=== PATIENT | male | born 1965 | race Caucasian/White ===

== ENCOUNTER 2020-01-06 11:03 | Emergency (ER) | payer BC ==
[~2020-01-06] VITALS: Ht 177.8 cm; Wt 81.8 kg
[~2020-01-06 11:03] MED LIST: AMLOPIDINE PO; CIPRO 500MG TA500 MG PO; FLAGYL500 MG PO; FLOMAX 0.40.4 MG/CAP PO; NORCO 325 MG-51 TAB PO; TOPROL XL25 MG PO; ZOFRAN 4MG T4 MG/TAB PO
[2020-01-06 11:06] VITALS: TEMP 97.7
[2020-01-06 11:37] LABS: BASO % 0.3 % (0.0-2.0); GRAN # 12.1 (1.4-6.5); HEMATOCRIT 43.6 % (42.0-52.0); HEMOGLOBIN 14.7 g/dl (13.5-18.0); LYMPH # 0.9 (1.2-3.4); LYMPH % 6.3 % (20.0-51.0); MEAN CELL VOLUME 88 fl (80.0-100.0); MEAN CORPUSCULAR HEMOGLOBIN 30 pg (27.0-31.0); MEAN CORPUSCULAR HGB CONC 34 g/dl (33.0-37.0); MONO % 6.9 % (1.7-9.3); PLATELET COUNT 171 K/mm3 (130-400); RED BLOOD COUNT 4.96 M/mm3 (4.20-5.60); REDCELL DISTRIBUTION WIDTH-CV 13.3 % (11.5-14.5)
[2020-01-06 11:47] LABS: ALANINE AMINOTRANSFERASE 38 U/L (4-49); ALBUMIN 4.6 gm/dL (3.5-5.0); ALKALINE PHOSPHATASE 103 U/L (50-136); ANION GAP 7 mmol/L (7-16); AST,SGOT 46 U/L (15-37); BILIRUBIN,TOTAL 0.6 mg/dL (0.0-1.0); BLOOD UREA NITROGEN 16 mg/dL (9-20); C-REACTIVE PROTEIN < 0.5 mg/dL (0.0-0.9); CALCIUM 9.1 mg/dL (8.4-10.2); CARBON DIOXIDE 25 mmol/L (22-30); CHLORIDE 105 mmol/L (98-107); CREATININE, serum 0.91 (0.66-1.25); GLUCOSE 179 mg/dL (74-106); LIPASE 93 U/L (23-300); POTASSIUM 3.8 mmol/L (3.4-5.0); SODIUM 137 mmol/L (137-145); TOTAL PROTEIN 7.9 gm/dL (6.4-8.2)
[2020-01-06 11:59] LABS: TROPONIN-I < 0.012 ng/mL (0.000-0.035)
[2020-01-06 12:01] LABS: PROLACTIN 20.1 ng/mL (3.7-17.9)
[2020-01-06 13:54] LABS: PROTHROMBIN TIME 10.9 SECONDS (9.7-12.8)
[2020-01-06 13:57] LABS: PARTIAL THROMBOPLASTIN TIME 28.6 SECONDS (26.0-37.0)
[2020-01-06 14:11] LABS: COLLECTION METHOD CLEAN CATCH
[2020-01-06 14:26] LABS: MUCOUS Present /lpf; PH 5 (5-8); SQUAMOUS EPITHELIAL None Seen /hpf; URINE APPEARANCE Hazy; URINE BACTERIA None Seen /hpf; URINE BILIRUBIN Negative (NEGATIVE); URINE BLOOD 3+ (NEGATIVE); URINE COLOR Yellow; URINE GLUCOSE Negative (NEGATIVE); URINE KETONE Negative (NEGATIVE); URINE LEUKOCYTE ESTERASE Negative (NEGATIVE); URINE NITRATE Negative (NEGATIVE); URINE PROTEIN(semi-quant) Negative (NEGATIVE); URINE UROBILINOGEN Negative (NEGATIVE)
[2020-01-06 15:15] VITALS: BP 128/90; PULSE 98
== END 2020-01-06 15:15 | disposition short-term general hospital (02) ==
LOC: COL.ER 11:03
PROVIDERS: Physician Assistant
DX: S22.061A Stable burst fracture of T7-T8 vertebra, initial encounter for closed fracture (principal); S22.080A Wedge compression fracture of T11-T12 vertebra, initial encounter for closed fracture; X58.XXXA Exposure to other specified factors, initial encounter
CPT/HCPCS: C9113; J1170; J2270; J2405; Q9967

== ENCOUNTER → 2020-03-01 | Outpatient (CLI) | payer OTHER, BC | LOC: COL.RAD 12:44 | DX: S22.062 Unstable burst fracture of T7-T8 vertebra (principal); Z98.1 Arthrodesis status; Z95.2 Presence of prosthetic heart valve ==

== ENCOUNTER 2020-05-20 08:00 | Outpatient (RCR) | payer OTHER, BC | END 2020-05-24 | disposition home or self-care (01) | LOC: MKS.ESL.PT | DX: S22.062 Unstable burst fracture of T7-T8 vertebra (principal); S22.080D Wedge compression fracture of T11-T12 vertebra, subsequent encounter for fracture with routine healing ==

== ENCOUNTER → 2020-05-25 | Outpatient (CLI) | payer OTHER, BC | LOC: COL.RAD 08:11 | DX: S22.062 Unstable burst fracture of T7-T8 vertebra (principal); S22.080D Wedge compression fracture of T11-T12 vertebra, subsequent encounter for fracture with routine healing; Z98.1 Arthrodesis status ==

== ENCOUNTER → 2021-05-04 | Outpatient (CLI) | payer BC | LOC: COL.RAD 10:52 | DX: Z98.890 Other specified postprocedural states (principal); Z95.828 Presence of other vascular implants and grafts; Z95.2 Presence of prosthetic heart valve | CPT/HCPCS: Q9967 ==

== ENCOUNTER 2021-06-26 09:40 | Inpatient (IN) | payer BC ==
[~2021-06-26] VITALS: Wt 78.2 kg
[2021-06-26] MEDS ORDERED: KEPPRA750 MG PO (09:52)
[2021-06-26] MEDS ORDERED: LAMICTAL XR100 MG PO (09:53)
[2021-06-26] MEDS ORDERED: PRISTIQ100 MG PO (10:14)
[2021-06-26] MEDS ORDERED: COZAAR 25MG25 MG/TAB PO (10:14)
[2021-06-26] MEDS ORDERED: LIPITOR 40MG TA40 MG PO (10:16)
[2021-06-26] MEDS ORDERED: BUSPAR10 MG PO (10:16)
[2021-06-26] MEDS ORDERED: FLOMAX 0.40.4 MG/CAP PO (10:29)
[2021-06-26] MEDS ORDERED: ASPIRIN E.C. 8181 MG PO (10:31)
[2021-06-26 10:36] LABS: BASO % 0.4 % (0.0-2.0); EOS % 0.1 % (0.0-4.0); GRAN # 8.5 K/mm3 (1.4-6.5); GRAN % 81.9 % (42.2-75.2); HEMATOCRIT 45.1 % (42.0-52.0); HEMOGLOBIN 15.2 g/dl (13.5-18.0); LYMPH # 1.1 K/mm3 (1.2-3.4); MEAN CELL VOLUME 88 fl (80.0-100.0); MEAN CORPUSCULAR HEMOGLOBIN 30 pg (27-31); MEAN CORPUSCULAR HGB CONC 34 g/dl (33.0-37.0); MEAN PLATELET VOLUME 8.8 fl (7.4-10.4); MONO # 0.7 K/mm3 (0.1-0.6); MONO % 6.3 % (1.7-9.3); PLATELET COUNT 225 K/mm3 (130-400); RED BLOOD COUNT 5.13 M/mm3 (4.20-5.60); REDCELL DISTRIBUTION WIDTH-CV 13.1 % (11.5-14.5)
[2021-06-26 10:51] LABS: ALANINE AMINOTRANSFERASE 29 U/L (0-55); ALBUMIN 4.5 gm/dL (3.5-5.0); ALKALINE PHOSPHATASE 88 U/L (40-150); ANION GAP 12 mmol/L (7-16); AST,SGOT 25 U/L (5-34); BILIRUBIN,TOTAL 0.6 mg/dL (0.2-1.2); BLOOD UREA NITROGEN 12 mg/dL (8-26); CALCIUM 9.5 mg/dL (8.4-10.2); CARBON DIOXIDE 24 mmol/L (22-29); CHLORIDE 105 mmol/L (98-107); CREATININE, serum 1.04 mg/dL (0.72-1.25); GLUCOSE 165 mg/dL (70-99); POTASSIUM 3.4 mmol/L (3.5-4.5); SODIUM 141 mmol/L (136-145)
[2021-06-26 10:55] LABS: ACETAMINOPHEN < 1.0 ug/mL (10-30); ALCOHOL(ethanol),MEDICAL < 10 mg/dL (0-10); SALICYLATE < 5.0 mg/dL (15.0-30.0)
[2021-06-26 11:11] LABS: TSH w REFLEX 2.645 uIU/mL (0.350-4.940)
[2021-06-26 13:11] LABS: VALPROIC ACID (DEPAKENE) < 12.5 ug/mL (43.5-90.5)
[2021-06-26 17:51] LABS: COLLECTION METHOD CLEAN CATCH
[2021-06-26 18:00] LABS: AMORPHOUS CRYSTAL Present (NOT PRESENT); PH 8 (5-8); SQUAMOUS EPITHELIAL 0-2 /hpf (0-10); URINE APPEARANCE Cloudy (CLEAR/HAZY); URINE BACTERIA None Seen /hpf (NONE SEEN); URINE BILIRUBIN Negative (NEGATIVE); URINE BLOOD Negative (NEGATIVE); URINE COLOR Yellow (YELLOW); URINE GLUCOSE Negative (NEGATIVE); URINE KETONE Negative (NEGATIVE); URINE LEUKOCYTE ESTERASE Negative (NEGATIVE); URINE NITRATE Negative (NEGATIVE); URINE PROTEIN(semi-quant) 1+ (NEGATIVE); URINE RBC 0-2 /hpf (0-2); URINE UROBILINOGEN Negative (NEGATIVE)
[2021-06-26 18:04] LABS: TRICYCLIC ANTIDEPRESS URINE NEGATIVE
--- NOTE | 2021-06-26 20:00 | NUR ---
Pt came to the unit by bed, alert but not oriented. Unable to provide information. Call placed to Kaelyn [phone] to get the update of the las medications taken. NS running at 75ml/hr. Assessment completed, medications provided. No further needs at this time. Bed alar on. Call light in place.
--- NOTE | 2021-06-26 22:00 | NUR ---
Patient asking for the time, reoriented, POC explained, after some minutes starts asking the same questions. Continue monitoring.
[2021-06-27 00:42] VITALS: BP 142/89; PULSE 124; TEMP 97.5
--- NOTE | 2021-06-27 03:47 | NUR ---
Patient is not able to sleep. Continues asking to go to the restroom and we continue reoriented about franklin, place and time. He tried to stand up and go to the restroom. Some PRN antianxiety prvided. Continue monitoring.
[2021-06-27 04:17] VITALS: BP 147/90; PULSE 110; TEMP 99.4
--- NOTE | 2021-06-27 06:16 | NUR ---
Patient continue disoriented. He asks for his and his brother like if they have been there in the room with him. He forgets about the catheter franklin and continuously ask to go to the restroom. He removed his left IV. Unable to sleep continously. Not agressive but cooperative. Report will be given to day RN.
[2021-06-27 06:50] LABS: BASO % 0.1 % (0.0-2.0); GRAN # 9.4 K/mm3 (1.4-6.5); GRAN % 85.2 % (42.2-75.2); HEMATOCRIT 37.9 % (42.0-52.0); LYMPH # 0.9 K/mm3 (1.2-3.4); LYMPH % 7.7 % (20.0-51.0); MEAN CELL VOLUME 88 fl (80.0-100.0); MEAN CORPUSCULAR HEMOGLOBIN 30 pg (27-31); MEAN CORPUSCULAR HGB CONC 34 g/dl (33.0-37.0); MEAN PLATELET VOLUME 8.9 fl (7.4-10.4); MONO # 0.7 K/mm3 (0.1-0.6); MONO % 6.7 % (1.7-9.3); PLATELET COUNT 182 K/mm3 (130-400); REDCELL DISTRIBUTION WIDTH-CV 13.4 % (11.5-14.5)
--- NOTE | 2021-06-27 07:04 | NUR ---
Call placed to Nima Ruth to notify lab result from 15.2 to 13 today morning.
[2021-06-27 07:15] LABS: ALBUMIN 3.7 gm/dL (3.5-5.0); CALCIUM 8.3 mg/dL (8.4-10.2); CREATININE, serum 0.76 mg/dL (0.72-1.25); MAGNESIUM 1.7 mg/dL (1.6-2.6); PHOSPHOROUS 2.5 mg/dL (2.3-4.7); POTASSIUM 3.6 mmol/L (3.5-4.5)
[2021-06-27 07:49] VITALS: BP 143/86; PULSE 102; TEMP 98
--- NOTE | 2021-06-27 09:56 | NUR ---
Pt assessment complete. Pt is back from MRI at this time. Pt is alert but oriented to self only. He denies any pain. No SOB. No appetite at this time. IVF restarted. Seizure precautions and fall precautions in place.
[2021-06-27 11:13] VITALS: BP 141/82; PULSE 90; TEMP 99.1
--- NOTE | 2021-06-27 16:23 | NUR ---
Medicine Technologist collaborated with Hospitalist who is working on transfer to [facility]. SW will follow up tomorrow if patient is still admitted.
[2021-06-27 16:40] VITALS: BP 149/84; PULSE 80; TEMP 99.1
--- NOTE | 2021-06-27 18:47 | NUR ---
Pt continued to be confused through the day, repeats and asks same questions within minutes of eachother. Reoriented frequently. Pleasant to staff and cooperative. Tara [facility]. Pt in Covid precautions d/t positive test prior to transfer. updated. Pt refused breakfast and lunch. Agreed to eating a cookie for dinner. Tolerating water without issues. Fall precautions in place.
[2021-06-27 20:14] VITALS: BP 137/80; PULSE 81; TEMP 98.9
[2021-06-28] VITALS (7 sets, daily range): BP systolic 131–144; BP diastolic 74–89; PULSE 67–99; TEMP 98–100.1
--- NOTE | 2021-06-28 06:24 | NUR ---
Awake, alert, oriented to self, short term memory issues noted, retention span of approximately 15 minutes, franklin in place draining yellow urine per gravity, denies pain, telemetr in use, seizure precautions in use, fall precautions in use.
[2021-06-28 06:51] LABS: BASO % 0.3 % (0.0-2.0); GRAN # 7.4 K/mm3 (1.4-6.5); GRAN % 75.9 % (42.2-75.2); HEMATOCRIT 38.8 % (42.0-52.0); HEMOGLOBIN 13.2 g/dl (13.5-18.0); LYMPH # 1.4 K/mm3 (1.2-3.4); LYMPH % 13.9 % (20.0-51.0); MEAN CELL VOLUME 86 fl (80.0-100.0); MEAN CORPUSCULAR HEMOGLOBIN 29 pg (27-31); MEAN CORPUSCULAR HGB CONC 34 g/dl (33.0-37.0); MEAN PLATELET VOLUME 8.9 fl (7.4-10.4); MONO # 0.9 K/mm3 (0.1-0.6); MONO % 9.7 % (1.7-9.3); PLATELET COUNT 184 K/mm3 (130-400); RED BLOOD COUNT 4.49 M/mm3 (4.20-5.60); REDCELL DISTRIBUTION WIDTH-CV 12.8 % (11.5-14.5)
[2021-06-28 06:56] LABS: ALBUMIN 3.7 gm/dL (3.5-5.0); CALCIUM 8.4 mg/dL (8.4-10.2); CREATININE, serum 0.73 mg/dL (0.72-1.25); MAGNESIUM 1.8 mg/dL (1.6-2.6); PHOSPHOROUS 1.8 mg/dL (2.3-4.7); POTASSIUM 3.4 mmol/L (3.5-4.5)
--- NOTE | 2021-06-28 09:56 | NUR ---
Patient is pleasant this morning. When asked where he was, he answered [place], and stated that the year was 2011. Patient correctly stated his full name and , and the current president. Patient currently sitting in the recliner, doing well. Pacheco catheter is still in place and draining properly. Patient does not have any complaints.
--- NOTE | 2021-06-28 14:46 | NUR ---
Due to patient's mental status and medical condition, patient's spouse Kassidy ([phone]) contacted. Kassidy states that she and the patient both live at home here in [place]. The patient is fully independent with his activities of daily living and does not utilize any DME to assist with mobility. Patient has no oxygen needs at home. PCP is Dr. Alaniz and they utilize [facility] for perscriptions with no cost difficulty. Kassidy does report that she does help the patient with his medications. Kassidy reports that they do not have a DPOA-HC established at this time. Education provided and she verbalizes her understanding. Collaborated with patient's RN. She feels as if the patient is sound enough to make a DPOA-HC.
--- NOTE | 2021-06-28 16:02 | NUR ---
Patient has done well today. Has been alternating between bed and recliner and remembers to call for assistance. Patient has not had any complaints. When asked where he was at 1200, he answered "[place].. Wait, no! Juliana, I knew that". Patient moving around very well. Remains asymptomatic with covid, other than a slight cough occasionally.
[2021-06-29 04:08] VITALS: BP 130/95; PULSE 98; TEMP 97.9
[2021-06-29 07:04] LABS: BASO % 0.3 % (0.0-2.0); EOS % 0.1 % (0.0-4.0); GRAN # 5.1 K/mm3 (1.4-6.5); GRAN % 76.3 % (42.2-75.2); HEMATOCRIT 39.3 % (42.0-52.0); HEMOGLOBIN 13.7 g/dl (13.5-18.0); LYMPH # 0.7 K/mm3 (1.2-3.4); LYMPH % 10.1 % (20.0-51.0); MEAN CELL VOLUME 85 fl (80.0-100.0); MEAN CORPUSCULAR HEMOGLOBIN 30 pg (27-31); MEAN CORPUSCULAR HGB CONC 35 g/dl (33.0-37.0); MONO # 0.9 K/mm3 (0.1-0.6); MONO % 13.1 % (1.7-9.3); PLATELET COUNT 177 K/mm3 (130-400); REDCELL DISTRIBUTION WIDTH-CV 12.8 % (11.5-14.5)
[2021-06-29 07:26] LABS: ALBUMIN 3.9 gm/dL (3.5-5.0); CALCIUM 8.5 mg/dL (8.4-10.2); CREATININE, serum 0.77 mg/dL (0.72-1.25); MAGNESIUM 1.9 mg/dL (1.6-2.6); PHOSPHOROUS 2.4 mg/dL (2.3-4.7); POTASSIUM 3.1 mmol/L (3.5-4.5)
[2021-06-29 08:24] VITALS: BP 147/77; PULSE 67; TEMP 99.1
--- NOTE | 2021-06-29 09:22 | NUR ---
Pt assessment complete. Pt is A/O x4, he is aware that he has covid. Does not repeat himself and questions like he did previously. Pt stating he is wanting to go home. Denies any pain. No N/V/D, reports he had a soft BM today. No SOB, currently on RA. Reports some congestion. No needs at this time. Call light within reach.
[2021-06-29 11:28] VITALS: BP 137/86; PULSE 90; TEMP 99.4
[2021-06-29] MEDS ORDERED: LAMICTAL XR100 MG PO (13:19)
[2021-06-29] MEDS ORDERED: KEPPRA 500MG500 MG PO (13:19)
[2021-06-29] MEDS ORDERED: LAMICTAL 100MG100 MG PO (13:25)
--- NOTE | 2021-06-29 16:01 | NUR ---
Discharge paperwork and instructions reviewed with patient. All questions answered at this time. IV to RFA dc'd catheter tip intact.
--- NOTE | 2021-06-29 16:13 | NUR ---
Pt wheeled out of facility at this time.
== END 2021-06-29 16:14 | disposition home or self-care (01) | DRG 100 ==
LOC: COL.ER 09:40 → MEDICAL 17:46
PROVIDERS: Family Medicine; ADMIT Internal Medicine
DX: G40.909 Epilepsy, unspecified, not intractable, without status epilepticus (principal); U07.1 COVID-19; G93.49 Other encephalopathy; F31.9 Bipolar disorder, unspecified; N40.0 Benign prostatic hyperplasia without lower urinary tract symptoms; E78.5 Hyperlipidemia, unspecified; I10 Essential (primary) hypertension; F29 Unspecified psychosis not due to a substance or known physiological condition; F41.1 Generalized anxiety disorder; Z95.2 Presence of prosthetic heart valve; Z79.82 Long term (current) use of aspirin; Z23 Encounter for immunization
CPT/HCPCS: 99223-AI; 99233-AI; 99239; A9585; J1200; J1630; J1953; J2060; J7030; J7120